=== PATIENT | female | born 1950 | race Caucasian/White ===

== ENCOUNTER → 2018-05-10 | Outpatient (CLI) | payer MEDICARE, MEDICAID ==
[~2018-05-10] MED LIST: ACETAMINOPHEN325 M1 PO; ACYCLOVIR 400400 MG PO; ACYCLOVIR PO; ALLEGRA180 MG PO; AMBIEN 10 MG TA10 MG PO; AMITIZA8 MCG; AMITIZA8 MCG PO; AMOXICILLIN875 MG PO; APIDRA; APIDRA SUBQ; ASPIRIN EC81 M1 PO; ASPIRIN81 M2 PO; BENTYL20 MG PO; BISACODYL SUPP10 MG RE; CEPACOL SORE T1 EAC7 PO; COLACE100 MG PO; CYCLOGYL5 M1; DEXILANT30 MG; DEXILANT60 MG PO; DIOVAN 80 MG TA80 M1 PO; DIOVAN PO; DIOVAN40 MG; DIOVAN40 MG PO; DONNATAL EXTEN1 EACH PO; DULCOLAX5 MG PO; DULERA 100 MCG/13 GM INH; ENOXAPARIN30 MG/0.1 INJECTION; GOLYTELY SOLU4000 ML PO; HEPSERA10 MG PO; HYDROCODON-ACE1 EAC7 PO; LANTUS; LANTUS SUBQ; LEVOTHYROXINE0.05 MG PO; LEVOXYL100 MCG PO; LYRICA 75 MG CA75 MG PO; LYRICA150 MG; MIRALAX255 GM PO; MUCINEX D TABL1 EAC1 PO; MYCELEX10 MG; NASONEX17 GM NASAL; NEXIUM40 MG PO; OXYMETAZOLINE H15 ML NS; PHENERGAN 25 MG25 M1; PHENERGAN25 MG RE; PRED FORTE 1% EY5 M1 OP; PRED FORTE 1% EY5 M1 OPHTHALMIC; PROLENSA1.6 ML OPHTHALMIC; SENNA SOFT15 MG PO; SENNA-LAX8.6 MG PO; SINGULAIR 10 MG10 M1 PO; ULTRACET TABLET1 TAB PO; ZOFRAN ODT4 MG PO; [UNRECOGNIZED DRUG - OTHER]; [UNRECOGNIZED DRUG - OTHER] PO
== END ==
LOC: M.RAD 06:31
DX: Z12.31 Encounter for screening mammogram for malignant neoplasm of breast (principal)

== ENCOUNTER → 2019-05-01 | Outpatient (CLI) | payer MEDICARE, MEDICAID | LOC: M.RAD 09:20 | DX: Z12.31 Encounter for screening mammogram for malignant neoplasm of breast (principal) ==

== ENCOUNTER → 2020-06-12 | Outpatient (CLI) | payer MEDICARE, MEDICAID | LOC: M.RAD 10:52 | PROVIDERS: ATTEND Family Medicine | DX: Z12.31 Encounter for screening mammogram for malignant neoplasm of breast (principal) ==

== ENCOUNTER → 2021-02-25 | Outpatient (CLI) | payer MEDICARE, MEDICAID | LOC: M.ULTRA 08:00 | PROVIDERS: ATTEND Internal Medicine Gastroenterology | DX: R79.89 Other specified abnormal findings of blood chemistry (principal) ==